=== PATIENT | female | born 1990 | race Caucasian/White ===

== ENCOUNTER 2017-04-19 23:07 | Emergency (ER) | payer MEDICAID ==
[~2017-04-19] VITALS: Ht 170.2 cm; Wt 143.0 kg
[2017-04-19 23:13] VITALS: BP 137/86
== END 2017-04-19 23:55 | disposition home or self-care (01) ==
LOC: EMS 23:08
DX: H60.92 Unspecified otitis externa, left ear (principal)
CPT/HCPCS: 99283

== ENCOUNTER 2017-04-22 13:24 | Emergency (ER) | payer MEDICAID ==
[~2017-04-22] VITALS: Ht 170.2 cm; Wt 136.0 kg
[2017-04-22] MEDS ORDERED: [UNRECOGNIZED DRUG - CODE] AU (13:57)
[2017-04-22 15:00] VITALS: BP 132/88
== END 2017-04-22 15:18 | disposition home or self-care (01) ==
LOC: EMS 13:25
DX: H60.91 Unspecified otitis externa, right ear (principal); H66.91 Otitis media, unspecified, right ear; R51 Headache
CPT/HCPCS: 99281; 99283

== ENCOUNTER 2022-04-11 10:33 | Emergency (ER) | payer MEDICAID ==
[~2022-04-11] VITALS: Ht 172.7 cm; Wt 181.8 kg
[~2022-04-11 10:33] MED LIST: [UNRECOGNIZED DRUG - CODE] AU
[2022-04-11] MEDS ORDERED: AMOX875T2 PO (10:48)
[2022-04-11] MEDS ORDERED: ACETAMINOPHEN 500 MG TABLET PO ONE (11:45)
[2022-04-11] MEDS ORDERED: CIPR7.5D AU (12:42)
[2022-04-11 12:56] VITALS: BP 140/80
== END 2022-04-11 12:57 | disposition home or self-care (01) ==
LOC: EMS 10:35
DX: H60.93 Unspecified otitis externa, bilateral (principal); E11.9 Type 2 diabetes mellitus without complications; Z79.899 Other long term (current) drug therapy
CPT/HCPCS: 99283

== ENCOUNTER 2024-02-15 01:09 | Emergency (ER) | payer MEDICAID ==
[~2024-02-15] VITALS: Ht 170.2 cm; Wt 165.4 kg
[~2024-02-15 01:09] MED LIST changes: +AMOX875T2 PO; +CIPR7.5D AU; -[UNRECOGNIZED DRUG - CODE] AU
[2024-02-15 01:20] VITALS: BP 153/90; PULSE 69; RESP 17; TEMP 98.2
[2024-02-15] MEDS ORDERED: ACETAMINOPHEN 325 MG TABLET ONE (02:27)
[2024-02-15] MEDS: ACETAMINOPHEN 325 MG TABLET PO ONE (02:28)
[2024-02-15] MEDS ORDERED: CIPOTIC AS (02:43)
[2024-02-15] MEDS ORDERED: AMOX1TAB16 PO (02:43)
[2024-02-15] MEDS ORDERED: TRAM50TA5 PO (02:43)
[2024-02-15] MEDS: LIDOCAINE/PF 1% 2 ML VIAL IM ONE (02:46)
[2024-02-15] MEDS: CefTRIAXone SODIUM 1 GM/VIAL IM ONE (02:46)
[2024-02-17] MEDS ORDERED: CIPOTIC AS (12:10)
[2024-02-17] MEDS ORDERED: CIPR7.5D7 AS (12:10)
== END 2024-02-15 03:00 | disposition home or self-care (01) ==
LOC: EMS 01:10
DX: H66.92 Otitis media, unspecified, left ear (principal); H60.92 Unspecified otitis externa, left ear; E11.9 Type 2 diabetes mellitus without complications; Z98.890 Other specified postprocedural states
CPT/HCPCS: 99283; 96372; J0696; J3490

== ENCOUNTER 2024-06-05 11:37 | Emergency (ER) | payer MEDICAID ==
[~2024-06-05] VITALS: Ht 170.2 cm; Wt 118.2 kg
[~2024-06-05 11:37] MED LIST changes: +AMOX-457 PO; +CIPOTIC AS; +CIPR7.5D7 AS; +TRAM50TA5 PO
[2024-06-05 11:49] VITALS: TEMP 98
[2024-06-05 12:12] LABS: BASOPHILS % (AUTO) 0.4 % (0.0-2.0); EOSINOPHILS % (AUTO) 0.4 % (1.0-6.0); HEMATOCRIT 39.2 % (36-46); LYMPHOCYTES # (AUTO) 2.7 K/uL (1.0-4.8); MEAN CORPUSCULAR HEMOGLOBIN 27.4 pg (26.0-34.0); MEAN CORPUSCULAR HGB CONC 33.1 G/dL (31.0-37.0); MEAN CORPUSCULAR VOLUME 83 fL (80-100); MONOCYTES # (AUTO) 0.3 K/uL (0.1-1.0); MONOCYTES % (AUTO) 4.5 % (2.0-9.0); NEUTROPHILS # (AUTO) 4.3 K/uL (1.8-7.7); NEUTROPHILS % (AUTO) 57.7 % (40.0-70.0); PLATELET COUNT (AUTO) 238 K/uL (150-450); RED BLOOD CELL COUNT(AUTO) 4.74 MIL/uL (4.00-5.20); RED CELL DISTRIBUTION WIDTH 14.9 % (11.5-14.5); WHITE BLOOD COUNT (AUTO) 7.4 K/uL (4.5-11.0)
[2024-06-05 12:19] LABS: ANION GAP 9 mmol/L (8-16); CALCIUM, TOTAL 8.6 mg/dL (8.8-10.5); CARBON DIOXIDE 26 mmol/L (22-29); CHLORIDE 101 mmol/L (98-107); CREATININE 0.76 mg/dL (0.60-1.30); GLOMERULAR FILTR. RATE CALC > 60 mL/min (>60); GLUCOSE,RANDOM 87 mg/dL (70-110); POTASSIUM 3.5 mmol/L (3.5-5.1); SODIUM SERUM 136 mmol/L (136-145); UREA NITROGEN, BLOOD 10 mg/dL (7-18)
[2024-06-05 12:25] LABS: ALANINE AMINOTRANSFERASE 15 U/L (12-78); ALBUMIN 3.2 g/dL (3.4-5.0); ALKALINE PHOSPHATASE 58 U/L (46-116); ASPARTATE AMINOTRANSFERASE 18 U/L (15-37); BILIRUBIN,TOTAL 0.7 mg/dL (0.1-1.0); LIPASE 43 U/L (16-77); TOTAL PROTEIN, SERUM 7.8 g/dL (6.4-8.2)
[2024-06-05 12:39] LABS: APPEARANCE,URINE CLEAR (CLEAR); BILIRUBIN,URINE NEGATIVE (NEGATIVE); COLOR,URINE YELLOW (YELLOW); GLUCOSE, URINE (UA) NEGATIVE (NEGATIVE); KETONES,URINE TRACE mg/dL (NEGATIVE); LEUKOCYTE ESTERASE ,URINE NEGATIVE (NEGATIVE); NITRATE,URINE NEGATIVE (NEGATIVE); OCCULT BLOOD,URINE SMALL (NEGATIVE); PROTEIN,URINE TRACE mg/dL (NEGATIVE); UROBILINOGEN,URINE <=1.0 mg/dL (<=1.0)
[2024-06-05 12:47] LABS: WBC,URINE None Seen /HPF (0-5)
[2024-06-05 12:48] LABS: BACTERIA,URINE None Seen /HPF (None Seen); SQUAMOUS EPITHELIAL CELL,UR Many /LPF (None Seen)
[2024-06-05] MEDS: ONDANSETRON HCL 4 MG/2 ML VIAL IVP ONE (14:01)
[2024-06-05] MEDS: ACETAMINOPHEN 500 MG TABLET PO ONE (14:01)
[2024-06-05] MEDS: MAG HYDROX/ALUMINUM HYD/SIMETH 30 ML SUSPENSION UDCUP PO ONE (14:01)
[2024-06-05] MEDS: FAMOTIDINE 20 MG/2 ML VIAL IVP ONE (14:01)
[2024-06-05] MEDS ORDERED: IOHEXOL 350 MG/ML 100 ML VIAL ONE (14:29)
[2024-06-05] MEDS ORDERED: SODIUM CHLORIDE 0.9% 100 ML ONE (14:29)
[2024-06-05 16:00] VITALS: BP 116/71; PULSE 68; RESP 18
[2024-06-05] MEDS ORDERED: IBUP-1492 PO (16:04)
[2024-06-05] MEDS ORDERED: KETOROLAC TROMETHAMINE 30 MG/ML VIAL IVP ONE (16:15)
== END 2024-06-05 16:23 | disposition home or self-care (01) ==
LOC: EMS 11:37
DX: K40.20 Bilateral inguinal hernia, without obstruction or gangrene, not specified as recurrent (principal); E11.9 Type 2 diabetes mellitus without complications; Z98.890 Other specified postprocedural states
CPT/HCPCS: 99285; 74177; 96374; 96375; 80048; 80076; 81001; 82962; 83690; 84703; 85025; 36415; Q9967; J3490; J2405; J7050